=== PATIENT | male | born 1970 | race Caucasian/White ===

== ENCOUNTER 2017-04-10 12:36 | Outpatient (CLI) | payer MEDICAID | END 2017-04-10 12:37 | disposition critical access hospital (66) | LOC: EMS 12:36 | PROVIDERS: ATTEND Surgery | DX: R07.9 Chest pain, unspecified (principal) | CPT/HCPCS: A0425; A0427 ==

== ENCOUNTER 2017-04-10 13:04 | Emergency (ER) | payer MEDICAID ==
[2017-04-10 13:56] LABS: BASOPHILS % (AUTO) 0.5 %; EOSINOPHILS # (AUTO) 0.3 10^3/uL (0.0-0.7); EOSINOPHILS % (AUTO) 4.7 %; HCT - HEMATOCRIT 43.5 % (42.0-52.0); HGB - HEMOGLOBIN 14.8 g/dL (14.0-18.0); LYMPHOCYTES # (AUTO) 2.7 10^3/uL (1.5-3.5); LYMPHOCYTES % (AUTO) 39.9 %; MEAN CORPUSCULAR HEMOGLOBIN 30.6 pg (27.0-31.0); MEAN CORPUSCULAR VOLUME 90.1 fL (80.0-94.0); MEAN PLATELET VOLUME 7.6 fL (7.4-11.4); MONOCYTES # (AUTO) 0.5 10^3/uL (0.0-1.0); MONOCYTES % (AUTO) 7.7 %; NEUTROPHILS # (AUTO) 3.2 10^3/uL (1.5-6.6); NEUTROPHILS % (AUTO) 47.2 %; RED BLOOD COUNT 4.83 10^6/uL (4.70-6.10); RED CELL DISTRIBUTION WIDTH 13.8 % (12.0-15.0); UNCORRECTED WHITE BLOOD COUNT 6.8 x10^3/uL; WHITE BLOOD COUNT 6.8 x10^3/uL (4.8-10.8)
--- NOTE | 2017-04-10 14:04 | XRAY Report ---
EXAM: CHEST RADIOGRAPHY EXAM DATE: 04/10/2017 01:39 PM. CLINICAL HISTORY: Chest pain. COMPARISON: None. TECHNIQUE: 1 view. FINDINGS: Lungs/Pleura: Expiratory chest with mild interstitial prominence. No definite localized infiltrate, c onsolidation, effusion, or pneumothorax. Mediastinum: Normal heart size for technique. Upper lobe vessels not distended. Other: None. IMPRESSION: No acute disease. [facility] Referring Provider Line: [phone] SITE ID: [id number]
[2017-04-10 14:05] LABS: ALBUMIN/GLOBULIN RATIO 1.2 (1.0-2.2); BILIRUBIN,TOTAL 0.7 mg/dL (0.2-1.0); CREATININE 0.8 mg/dL (0.6-1.2); POTASSIUM 3.8 mmol/L (3.5-5.0); TOTAL PROTEIN 7.3 g/dL (6.7-8.2)
--- NOTE | 2017-04-10 15:31 | ED Physician Documentation ---
History of Present Illness - Stated complaint Stated Complaint: CP - Chief complaint Chief Complaint: Cardiac - History obtained from History obtained from: Patient (pt is here with right sided chest pain. states that it started last night. woke up with it this AM. no SOB. has had OK in the past with stents. states that he is not taking his medications. he is here by Police after he was arrested.) Review of Systems Constitutional: denies: Fever, Chills Cardiac: reports: Chest pain / pressure. denies: Palpitations, Pedal edema Respiratory: denies: Dyspnea, Cough GI: denies: Abdominal Pain, Nausea, Vomiting, Constipation, Diarrhea : denies: Dysuria Musculoskeletal: denies: Neck pain, Joint pain Neurologic: denies: Generalized weakness, Altered mental status, Headache, LOC PD PAST MEDICAL HISTORY - Past Medical History Past Medical History: Yes Cardiovascular: Hypertension, High cholesterol, Coronary artery disease - Past Surgical History Cardiovascular: Coronary stent - Present Medications Home Medications: Ambulatory Orders Medication Instructions Recorded Confirmed Aspirin 81 mg PO DAILY 04/10/17 04/10/17 Clopidogrel [Plavix] 75 mg PO DAILY 04/10/17 04/10/17 Metoprolol Tartrate 0 mg PO DAILY 04/10/17 04/10/17 - Allergies Allergies/Adverse Reactions: Allergies Allergy/AdvReac Type Severity Reaction Status Date / Time No Known Drug Allergies Allergy Verified 04/10/17 13:11 - Social History Does the pt smoke?: Yes Smoking Status: Current every day smoker Does the pt drink ETOH?: No Does the pt have substance abuse?: Yes Substance Use and Type: Meth PD ED PE NORMAL - Vitals Vital signs reviewed: Yes - General General: Alert and oriented X 3, No acute distress, Well developed/nourished - HEENT HEENT: Atraumatic, Moist mucous membranes - Cardiac Cardiac: RRR, No murmur, No gallop, No rub - Respiratory Respiratory: No respiratory distress - Abdomen Abdomen: Normal bowel sounds - Derm Derm: Normal color, No rash - Neuro Neuro: Alert and oriented X 3, Normal speech Eye Opening: Spontaneous Motor: Obeys Commands Verbal: Oriented GCS Score: 15 - Psych Psych: Normal mood, Normal affect Results - Vitals Vitals: Vital Signs - 24 hr 04/10/17 04/10/17 04/10/17 13:05 13:16 13:21 Temperature 36.8 C Heart Rate 87 83 82 Respiratory 17 16 16 Rate Blood Pressure 120/86 H 119/88 H 119/88 H O2 Saturation 99 100 99 04/10/17 04/10/17 14:05 14:44 Temperature Heart Rate 73 69 Respiratory 15 17 Rate Blood Pressure 137/87 H 137/94 H O2 Saturation 97 99 Oxygen O2 Source Room air - EKG (time done) 1312 Rate: Rate (enter#) [place]: Normal Intervals: Normal [place], QRS normal QRS: Normal Ischemia: Normal ST segments - Labs Labs: Laboratory Tests 04/10/17 04/10/17 04/10/17 13:43 13:43 13:43 WBC 6.8 RBC 4.83 Hgb 14.8 Hct 43.5 MCV 90.1 MCH 30.6 MCHC 34.0 RDW 13.8 Plt Count 258 MPV 7.6 Neut # 3.2 Lymph # 2.7 [place] # 0.5 Eos # 0.3 Baso # 0.0 Absolute Nucleated RBC 0.00 Nucleated RBC % 0.0 Sodium 142 Potassium 3.8 Chloride 106 Carbon Dioxide 27 Anion Gap 9.0 BUN 17 Creatinine 0.8 Estimated GFR (MDRD) 103 Glucose 98 Calcium 9.0 Total Bilirubin 0.7 AST 26 ALT 33 Alkaline Phosphatase 71 Troponin I 0.05 Total Protein 7.3 Albumin 4.0 Globulin 3.3 Albumin/Globulin Ratio 1.2 Lipase 130 H - Rads (name of study) CXR Radiology: Final report received PD MEDICAL DECISION MAKING - ED course Complexity details: d/w patient ED course: pt with neg trop > 6 hours after onset of symptoms. cxr neg. has right sided chest pain. doubt ACS or PE or PNA. pt is OK for nursing home. Departure - Departure Disposition: 01 Home, Self Care Clinical Impression: Chest wall pain Condition: Good Instructions: ED Chest Pain Atypical Unkn Cause Follow-Up: nursing home, provider [Other] Comments: Follow up with the nursing home medical staff if your symptoms do not improve. Return to the ER for any new or worsening symptoms
[2017-04-10 15:32] VITALS: BP 133/99
== END 2017-04-10 15:44 | disposition home or self-care (01) ==
LOC: ED 13:04
DX: R07.89 Other chest pain (principal); Z02.89 Encounter for other administrative examinations; I25.2 Old myocardial infarction; I10 Essential (primary) hypertension; E78.00 Pure hypercholesterolemia, unspecified; I25.10 Atherosclerotic heart disease of native coronary artery without angina pectoris; Z79.82 Long term (current) use of aspirin; F17.200 Nicotine dependence, unspecified, uncomplicated
CPT/HCPCS: 36415; 71010; 80053; 83690; 84484; 85025; 93005; 99284

== ENCOUNTER 2018-11-24 15:34 | Outpatient (CLI) | payer MEDICAID | END 2018-11-24 15:35 | disposition short-term general hospital (02) | LOC: EMS 15:34 | PROVIDERS: ATTEND Surgery | DX: R07.9 Chest pain, unspecified (principal); R11.0 Nausea; R51 Headache | CPT/HCPCS: A0425; A0427 ==

== ENCOUNTER 2020-06-03 12:35 | Outpatient (CLI) | payer MEDICAID | END 2020-06-03 23:59 | disposition short-term general hospital (02) | LOC: EMS 12:35 | DX: R07.9 Chest pain, unspecified (principal) | CPT/HCPCS: A0425; A0427; A0999 ==

== ENCOUNTER 2020-08-15 21:44 | Emergency (ER) | payer MEDICAID ==
--- OUTSIDE RECORDS SUMMARY | 2020-08-15 21:48 | EXTERNAL MEDICAL SUMMARY RPT | Continuity of Care Document ---
:1970 Demographics Phone Unavailable Preferred Language Unknown Marital Status Unknown Synagogue Affiliation Unknown Race Unknown Ethnic Group Unknown Author Organization [facility] Address [address] [phone] Phone Social History date description facility [phone]
--- OUTSIDE RECORDS SUMMARY | 2020-08-15 22:05 | EXTERNAL MEDICAL SUMMARY RPT | Continuity of Care Document ---
:1970 Demographics Phone Unavailable Preferred Language Unknown Marital Status Unknown Protestant Affiliation Unknown Race Unknown Ethnic Group Unknown Author Organization [facility] Address [address] [phone] Phone Social History date description facility [phone]
--- NOTE | 2020-08-15 22:21 | ED Physician Documentation ---
PD HPI GI BLEED - Stated complaint Stated Complaint: BLOODY STOOL, CONSTIPATION - Chief complaint Chief Complaint: Abd Pain - History obtained from History obtained from: Patient - History of Present Illness Timing - onset: How many hours ago (4), Today Timing - duration: Hours (1-2) Timing - details: Abrupt onset (he states he had feeling to have BM and had a hard time getting stool out. He pushed really hard, had lower abd cramps and noted a lot or bright red blood in toilet bowl. He had to digitially get some of the stool out. He says the cramps were severe. He felt dyspnea with the ordeal. Cramps improved.) Associated symptoms: BRBPR, Constipation, Abdominal pain, Chest pain (he states he has chest pain often, with chest tenderness. Had nuclear stress test by Cardiology about 6 months ago that was normal.). No: Vomiting, Fever, Dizzy, Near syncope / syncope Contributing factors: No: Sick contact, Bad food, Travel, Recent antibiotics Improved by: Laying still Worsened by: Other (stool output). No: Breathing Similar symptoms before: Has not had sx before (he states normally firm but not hard stools. No prior rectal bleeding.) Recently seen: Not recently seen Review of Systems Constitutional: denies: Fever, Chills Nose: denies: Rhinorrhea / runny nose, Congestion Throat: denies: Sore throat Cardiac: reports: Chest pain / pressure (commonly without exertion. Had stress test 6 months ago. Does have prior [place] with stent few years ago.) Respiratory: denies: Cough GI: reports: Abdominal Pain, Constipation (just today), Bloody / black stool. denies: Nausea, Vomiting, Diarrhea Musculoskeletal: reports: Extremity pain (right elbow pain with ROM for weeks. Seen by PMD and Dx with elbow tendonitis. No treatment except exercises.), Extremity swelling (has had bilateral leg edema ongoing.) PD PAST MEDICAL HISTORY - Past Medical History Cardiovascular: Hypertension, High cholesterol, Coronary artery disease - Past Surgical History Cardiovascular: Coronary stent - Present Medications Home Medications: Ambulatory Orders Medication Instructions Recorded Confirmed Aspirin 81 mg PO DAILY 04/10/17 04/10/17 Clopidogrel [Plavix] 75 mg PO DAILY 04/10/17 04/10/17 Metoprolol Tartrate 0 mg PO DAILY 04/10/17 04/10/17 Docusate Sodium 100Mg Capsule 100 mg PO DAILY #20 cap 08/16/20 [Colace 100Mg Capsule] Hydrocortisone [Anusol-Hc] 30 gm RC DAILY 5 Days #5 08/16/20 dexAMETHasone [Decadron] 4 mg PO DAILY #7 tablet 08/16/20 hydroCHLOROthiazide [Hydrodiuril] 25 mg PO DAILY #30 tablet 08/16/20 - Allergies Allergies/Adverse Reactions: Allergies Allergy/AdvReac Type Severity Reaction Status Date / Time No Known Drug Allergies Allergy Verified 08/15/20 21:58 - Social History Does the pt smoke?: Yes Smoking Status: Current every day smoker Does the pt drink ETOH?: No Does the pt have substance abuse?: Yes PD ED PE NORMAL - Vitals Vital signs reviewed: Yes - General General: Alert and oriented X 3, No acute distress, Well developed/nourished - Neck Neck: Supple, no meningeal sign, No adenopathy - Cardiac Cardiac: RRR, No murmur - Respiratory Respiratory: Clear bilaterally, Other (no chestwall tenderness) - Abdomen Abdomen: Normal bowel sounds, Soft, Non tender, Non distended - Male Male : Deferred - Rectal Rectal: Other (external hemorrhoid that is tender and inflammed, but not thrombosed. ) - Back Back: No CVA TTP - Derm Derm: Normal color, Warm and dry - Extremities Extremities: No tenderness to palpate, Normal ROM s pain, No calf tenderness / cord, Other (1+ edema in both legs up to the knees. No warmth nor sores. Right elbow with some tenderness lateral ulnar condyle. No redness. ) Results - Vitals Vitals: Vital Signs - 24 hr 08/15/20 08/16/20 08/16/20 21:45 00:22 02:00 Temperature 36.4 C L 36.4 C L Heart Rate 97 79 74 Respiratory 18 15 16 Rate Blood Pressure 143/100 H 143/81 H 154/89 H O2 Saturation 100 88 L 99 Oxygen O2 Source Room air Oxygen Flow Rate 2 - EKG (time done) 22:54 Rate: Rate (enter#) (74) Rhythm: NSR [place]: Normal Intervals: Normal [place] QRS: Normal Ischemia: Normal ST segments. No: ST elevation c/w ischemia, ST depression - Labs Labs: Laboratory Tests 08/15/20 08/15/2021 22:52 22:52 22:52 WBC 10.1 RBC 4.51 L Hgb 13.8 L Hct 41.4 L MCV 91.8 MCH 30.6 MCHC 33.3 RDW 13.5 Plt Count 263 MPV 9.7 Neut # (Auto) 7.6 H Lymph # (Auto) 1.5 [place] # (Auto) 0.8 Eos # (Auto) 0.2 Baso # (Auto) 0.0 Absolute Nucleated RBC 0.00 Nucleated RBC % 0.0 ESR Sodium 140 Potassium 3.6 Chloride 107 Carbon Dioxide 25 Anion Gap 8.0 BUN 24 H Creatinine 1.0 Estimated GFR (MDRD) 78 L Glucose 106 H Calcium 9.1 Magnesium 2.2 Total Bilirubin 0.9 AST 35 ALT 42 Alkaline Phosphatase 78 Troponin I High Sens 71.0 H* B-Natriuretic Peptide Total Protein 7.0 Albumin 4.0 Globulin 3.0 Albumin/Globulin Ratio 1.3 Lipase 30 Rheumatoid Factor 08/15/20 08/15/20 08/15/20 22:52 22:52 22:52 WBC RBC Hgb Hct MCV MCH MCHC RDW Plt Count MPV Neut # (Auto) Lymph # (Auto) [place] # (Auto) Eos # (Auto) Baso # (Auto) Absolute Nucleated RBC Nucleated RBC % ESR 8 Sodium Potassium Chloride Carbon Dioxide Anion Gap BUN Creatinine Estimated GFR (MDRD) Glucose Calcium Magnesium Total Bilirubin AST ALT Alkaline Phosphatase Troponin I High Sens B-Natriuretic Peptide 17 Total Protein Albumin Globulin Albumin/Globulin Ratio Lipase Rheumatoid Factor NEGATIVE 08/16/20 00:22 WBC RBC Hgb Hct MCV MCH MCHC RDW Plt Count MPV Neut # (Auto) Lymph # (Auto) [place] # (Auto) Eos # (Auto) Baso # (Auto) Absolute Nucleated RBC Nucleated RBC % ESR Sodium Potassium Chloride Carbon Dioxide Anion Gap BUN Creatinine Estimated GFR (MDRD) Glucose Calcium Magnesium Total Bilirubin AST ALT Alkaline Phosphatase Troponin I High Sens 65.8 H* B-Natriuretic Peptide Total Protein Albumin Globulin Albumin/Globulin Ratio Lipase Rheumatoid Factor - Rads (name of study) chest xray Radiology: Prelim report reviewed (no obvious CHF nor acute. ), See rad report PD MEDICAL DECISION MAKING - ED course Complexity details: reviewed results (has elevation of troponin with repeat lowering. Presume some demand ischemia effect from straining so hard with the abd pain. ), considered differential (BRBPR seems related to hemorrhoid and constipation. Leg edema without signs of CHF. Consider such as PMR for his chest and arm pain/tendonitis. ), d/w patient ED course: He rested in ER while getting labs. He slept and snored quite a bit, and was noted to drop his sats during that, c/w obstructive sleep disorder. He could certainly benefit from sleep eval and likely CPAP and could help his HTN, edema, and general wellness. Departure - Departure Disposition: 01 Home, Self Care Clinical Impression: Rectal bleeding, Inflamed external hemorrhoid, Leg edema, Elbow tendonitis, Obstructive sleep apnea Constipation Qualifiers: Constipation type: unspecified constipation type Qualified Code(s): K59.00 - Constipation, unspecified Condition: Stable Record reviewed to determine appropriate education?: Yes Instructions: ED Edema Legs Bilateral, ED Hemorrhoids Prescriptions: Hydrocortisone [Anusol-Hc] 30 gm RC DAILY 5 Days #5 Docusate Sodium 100Mg Capsule [Colace 100Mg Capsule] 100 mg PO DAILY #20 cap dexAMETHasone [Decadron] 4 mg PO DAILY #7 tablet hydroCHLOROthiazide [Hydrodiuril] 25 mg PO DAILY #30 tablet Comments: Blood count is good. Even though you lost an apparent large amount of blood with the constipation and the hemorrhoid, you are still have a good blood pressure and blood count. Use the Anusol suppositories daily for the next 5 days to help treat the hemorrhoid. You can use [id number] hemorrhoid cream as well. Use stool softener twice daily for the next several days and then daily after that for a couple of weeks to keep things soft as the hemorrhoid and such heal up. For your leg swelling, there is no signs of kidney failure no heart failure based on your blood tests and chest x-ray. Some of it may be just gravity related so elevate your legs often during the day and you could consider some tight fitting compressive socks to help with the swelling to. We can add a diuretic water pill daily of the short-term as well and see if that helps. For the tendinitis, we could try Decadron steroid for inflammation for the next week and see if that helps. While you were rested and sleeping here in the ER, you did have considerable snoring and your oxygenation level dipped considerably. You may benefit quite well from having your primary care refer you to a network systems administrator or such for a sleep study. You could benefit from a CPAP machine and perhaps some oxygen at night and this could help a lot of your medical problems such as the edema, fatigue, high blood pressure etc. Discharge Date/Time: 08/16/20 02:31
[2020-08-15] MEDS ORDERED: DOCUSATE SODIUM 100 MG CAPSULE PO STA (22:38)
[2020-08-15] MEDS ORDERED: KETOROLAC 30 MG/ML VIAL IVP STA (22:38)
[2020-08-15] MEDS ORDERED: HYDROCORTISONE 25 MG SUPPOSITORY PR STA (22:39)
[2020-08-15 22:59] LABS: BASOPHILS % (AUTO) 0.2 %; EOSINOPHILS # (AUTO) 0.2 10^3/uL (0.0-0.7); EOSINOPHILS % (AUTO) 1.6 %; HCT - HEMATOCRIT 41.4 % (42.0-52.0); HGB - HEMOGLOBIN 13.8 g/dL (14.0-18.0); LYMPHOCYTES # (AUTO) 1.5 10^3/uL (1.5-3.5); LYMPHOCYTES % (AUTO) 14.9 %; MEAN CORPUSCULAR HEMOGLOBIN 30.6 pg (27.0-31.0); MEAN CORPUSCULAR HGB CONC 33.3 g/dL (32.0-36.0); MEAN CORPUSCULAR VOLUME 91.8 fL (80.0-94.0); MEAN PLATELET VOLUME 9.7 fL (7.4-11.4); MONOCYTES # (AUTO) 0.8 10^3/uL (0.0-1.0); MONOCYTES % (AUTO) 7.8 %; NEUTROPHILS # (AUTO) 7.6 10^3/uL (1.5-6.6); NEUTROPHILS % (AUTO) 75.2 %; PLT - PLATELET COUNT 263 10^3/uL (130-450); RED BLOOD COUNT 4.51 10^6/uL (4.70-6.10); RED CELL DISTRIBUTION WIDTH 13.5 % (12.0-15.0); WHITE BLOOD COUNT 10.1 x10^3/uL (4.8-10.8)
[2020-08-15 23:13] LABS: ALBUMIN/GLOBULIN RATIO 1.3 (1.0-2.2); BILIRUBIN,TOTAL 0.9 mg/dL (0.2-1.0); CALCIUM 9.1 mg/dL (8.5-10.3); MAGNESIUM 2.2 mg/dL (1.7-2.8); POTASSIUM 3.6 mmol/L (3.5-5.0)
[2020-08-15 23:37] LABS: RHEUMATOID FACTOR NEGATIVE (Negative)
[2020-08-16] MEDS ORDERED: FUROSEMIDE 20 MG/2 ML VIAL IVP STA (00:25)
[2020-08-16 02:32] VITALS: BP 154/89
--- NOTE | 2020-08-16 11:17 | XRAY Report ---
PROCEDURE: Chest 1 View X-Ray INDICATIONS: chest pain TECHNIQUE: One view of the chest was acquired. COMPARISON: Chest xray 04/10/17 FINDINGS: Surgical changes and devices: None. Lungs and pleura: No pleural effusions or pneumothorax. Lungs are clear. Mediastinum: Mediastinal contours appear normal. Heart size is normal. Bones and chest wall: No suspicious bony lesions. Overlying soft tissues appear unremarkable. IMPRESSION: No acute pulmonary process. Reviewed by: Imelda Duarte MD on 08/16/2020 11:16 AM PDT Approved by: Imelda Duarte MD on 08/16/2020 11:16 AM PDT Station ID: [id number]
== END 2020-08-16 02:31 | disposition home or self-care (01) ==
LOC: ED 21:44
DX: K59.00 Constipation, unspecified (principal); K64.8 Other hemorrhoids; R60.9 Edema, unspecified; M77.8 Other enthesopathies, not elsewhere classified; I10 Essential (primary) hypertension; F17.200 Nicotine dependence, unspecified, uncomplicated; G47.33 Obstructive sleep apnea (adult) (pediatric)
CPT/HCPCS: 36415; 71045; 80053; 83690; 83735; 83880; 84484; 85025; 85651; 86430; 93005; 96374; 96375; 99284; 99285; A9270; J3490